=== PATIENT | female | born 1990 | race Caucasian/White ===

== ENCOUNTER 2018-12-02 05:38 | Day surgery (SDC) | payer OTHER ==
[~2018-12-02] VITALS: Ht 157.5 cm; Wt 87.6 kg
[2018-12-02] VITALS (12 sets, daily range): BP systolic 93–117; BP diastolic 51–67; PULSE 58–107; RESP 15–29; Ht 157.5 cm; Wt 87.6 kg
[~2018-12-02 05:38] MED LIST: CEFAZOLIN 2 GM/50 ML (PMX) 50 ML IVPB ONE; SOD CHLORIDE 0.9% 1,000 ML IV ONE
[2018-12-02] MEDS ORDERED: BUPIVACAINE 0.25% (MPF) 30 ML INJ ONE (06:48)
[2018-12-02] MEDS ORDERED: APRE30TA2 PO (06:58)
--- NOTE | 2018-12-02 07:33 | PREAC ---
Date/Time of Note Date/Time of Note DATE: 12/02/18 TIME: 07:32 Anesthesia Eval and Record Evaluation Time Pre-Procedure Interview DATE: 12/02/18 TIME: 07:32 Age 28 Sex female NPO: 8 hrs Preoperative diagnosis back mass Planned procedure excision Past Medical History Past Medical History: Includes Pulm: Asthma Surgery & Anesthesia Issues No known issue Meds Anticoagulation: No Beta Sherrie within 24 hr: No Reason Beta Sherrie not given: Pt. not on B-Sherrie Reported Medications Apremilast (Otezla) 30 Mg Tablet, 30 MG PO BID, TAB 12/02/18 Current Medications Sodium Chloride 1,000 ml @ 75 mls/hr [id number] ONCE IV ; Start 12/02/18 at 05:30; Stop 12/02/18 at 18:49 Meds reviewed: Yes Allergies Coded Allergies: No Known Allergy (Unverified , 12/02/18) Allergies Reviewed: Yes Labs/Studies Labs Reviewed: Reviewed by anesthesiologist test: Negative Pre-procedure Exam Last vitals Vital Signs Date Temp Pulse Resp B/P (MAP) Pulse Ox O2 O2 Flow FiO2 Time Delivery Rate 12/02/18 97.6 58 18 96/61 (73) 100 06:45 Airway: Adequate mouth opening, Adequate thyromental dist Mallampati: Mallampati II Teeth: Normal Lung: Normal Heart: Normal ASA Physical Status ASA physical status: 2 Emergency: None Pre-operative Attestations Prior to commencing anesthesia and surgery, the patient was re-evaluated, there was verification of: *The patient's identity *The results of appropriate recent lab work and preoperative vital signs *The above evaluation not changing prior to induction *Anesthetic plan, risk benefits, alternative and complications discussed with patient/family; questions answered; patient/family understands, accepts and wishes to proceed. CLARIBEL VALVERDE DO Dec 02, 2018 07:33
[2018-12-02] MEDS ORDERED: FENTAnyl 50 MCG/ML VIAL ONE (07:45)
[2018-12-02] MEDS ORDERED: MIDAZOLAM 1 MG/ML 2 ML INJ ONE (07:45)
[2018-12-02] MEDS ORDERED: SEVOFLURANE 15 MIN ONE (07:45)
[2018-12-02] MEDS ORDERED: CEFAZOLIN 1 GM INJ ONE (07:47)
[2018-12-02] MEDS ORDERED: PROPOFOL 20 ML ONE (07:59)
[2018-12-02] MEDS ORDERED: LIDOCAINE 2% (SDV) 5 ML INJ ONE (07:59)
[2018-12-02] MEDS ORDERED: FENTAnyl 50 MCG/ML VIAL IV PRN ×2 (08:00)
[2018-12-02] MEDS ORDERED: DEXAMETHASONE 4 MG/ML 5 ML INJ ONE (08:27)
[2018-12-02] MEDS ORDERED: ONDANSETRON 4 MG INJ ONE (08:27)
--- NOTE | 2018-12-02 08:41 | OPR ---
Date/Time of Note Date/Time of Note DATE: 12/02/18 TIME: 08:39 Operative Report Procedure Date: Dec 02, 2018 Preoperative Diagnosis back tumor Postoperative Diagnosis same Operation/Procedure Performed 1. excision of back mass 8 cm incision 13 cm tumor 2. localized adjacent tissue transfer with the use of skin flaps 16 sq cm defect of the back 3. therapeutic injection of subcutaneous local anesthesia Surgeon see signature line It Support Consultant none Anesthesia Type: general Estimated Blood Loss: 0 - 10 ml's Transfusion none Specimen back tumor Grafts/Implants none Complications none Pt Condition Post Procedure: stable Indications This is a 28-year-old female with a back tumor. She has had back tumor excision before. Risks alternatives benefits and personal were discussed the patient. Potential complications including but not limited to bleeding infection hematoma seroma recurrence of tumor and need for additional operations were discussed with the patient. Patient expressed understanding and consents to the operation. Procedure Description Patient is taken to the OR and prepped and draped in usual sterile fashion. Surgical time was performed. IV antibiotics given. Transverse incision was made at the 15 blade. Dissection cautery is good onto the deep subcutaneous tissues. The tumor was identified and this was grasped with Allis. The tumor was then cauterized and excised. Good hemostasis status. Due to tissue defect localization to stress her with these of skin flaps were performed. Multilayer closed with interrupted 0 Vicryl and skin radha. Therapeutic subcu taste local anesthesia was injected at the incision site. Dry dressings were applied. Carmen LEONARD Dec 02, 2018 08:41
--- NOTE | 2018-12-02 08:46 | PAC ---
Date/Time of Note Date/Time of Note DATE: 12/02/18 TIME: 08:44 Post-Anesthesia Notes Post-Anesthesia Note Last documented vital signs Vital Signs Date Temp Pulse Resp B/P (MAP) Pulse Ox O2 O2 Flow FiO2 Time Delivery Rate 12/02/18 98 107 19 96/65 100 0845 Activity: WNL Respiratory function: WNL Cardiovascular function: WNL Mental status: Baseline Pain reasonably controlled: Yes Hydration appropriate: Yes Nausea/Vomiting absent: Yes CLARIBEL VALVERDE DO Dec 02, 2018 08:46
[2018-12-02] MEDS ORDERED: HYDROCODONE/APAP (5/325) TAB PO ONE (09:00)
== END 2018-12-02 10:24 | disposition home or self-care (01) ==
LOC: SDS 05:38
PROVIDERS: ATTEND Surgery
DX: D17.0 Benign lipomatous neoplasm of skin and subcutaneous tissue of head, face and neck (principal); J45.909 Unspecified asthma, uncomplicated
CPT/HCPCS: 14001; 88307; J0690; J1100; J2250; J2405; J3010; J7030; Z7610